=== PATIENT | male | born 1960 | race Caucasian/White ===

== ENCOUNTER → 2021-03-26 07:37 | Outpatient (CLI) | payer MEDICAID, SELFPAY ==
--- NOTE | 2021-03-26 07:39 | CA_ITS ---
APPROVED REPORT Tennis Desk Team Member: GUSTABO Laterality: Bilateral Indications: bilateral carotid bruits Risk Factors Hypertension: Hyperlipidemia Diabetes Smoking Doppler Spectral Velocity Analysis ECA (R) 134.70/27.80 cm/s ECA (L) 92.50/19.70 cm/s dICA (R) 73.70/36.80 cm/s dICA (L) 104.50/42.80 cm/s Violette (R) 83.10/33.40 cm/s Violette (L) 78.00/32.60 cm/s pICA (R) 95.20/28.90 cm/s pICA (L) 71.10/24.80 cm/s dCCA (R) 82.30/24.80 cm/s dCCA (L) 107.10/35.10 cm/s pCCA (R) 105.40/29.10 cm/s pCCA (L) 106.20/31.70 cm/s Vert (R) 53.10/23.10 cm/s Vert (L) 50.90/15.70 cm/s ICA/CCA 1.16 ICA/CCA 0.98 Findings Duplex evaluation demonstrates stenosis of the right proximal internal carotid artery <20%. Duplex evaluation demonstrates stenosis of the left proximal internal carotid artery <20%. Conclusion Duplex evaluation demonstrates stenosis of the right proximal internal carotid artery <20%. Duplex evaluation demonstrates stenosis of the left proximal internal carotid artery <20%. Electronically signed by : Cameron Harris MD 03/26/2021 16:37:29
== END ==
PROVIDERS: PCP Physician Assistant Medical; Visit Provider Physician Assistant
DX: R09.89 Other specified symptoms and signs involving the circulatory and respiratory systems (principal)
CPT/HCPCS: 93880

== ENCOUNTER → 2021-09-23 06:42 | Outpatient (CLI) | payer MEDICAID, SELFPAY ==
--- NOTE | 2021-09-23 06:43 | CA_ITS ---
APPROVED REPORT Exam: Exercise Treadmill Technologist: Nati Perera, Ht: 5 ft 6 in Wt: 173 lbs BSA: 1.88 m2 HR: 61 bpm BP: 128/81 mmHg Rhythm: NSR, T wave abn inferiorly and laterally Indications: CAD Medical History Medical History: HTN, Hyperlipidemia, Diabetic ??? Noninsulin Medications: Aspirin,,,,, Metformin,,,,, Losartan,,,,, Hydrochlorothiazide,,,,, Vit D3,,,,, Vit B,,,,, CloPIdogrel,,,,, Nitroglycerin,,,,, AtorvaASTATIN,,,,, PantoprazLE,,,,, Cardiac Risk Factors: HTN, Hyperlipidemia, Diabetes (non-insulin), Smoking Stress Test Details Test: Susie HR Resting HR: 67 bpm Max Heart Rate (APMHR): 162.920852 bpm Max HR Achieved: 149 bpm Target HR (85% APMHR): 137.380656 bpm % of APMHR: 91.98 Recovery HR: 132 bpm BP Resting BP: 133/78 mmHg Max BP: 186/82 mmHg Recovery BP: 182.0/80.0 mmHg ECG Resting ECG: NSR, T wave abn inferiorly and laterally Clinical Exercise duration: 09:30 min Highest Stage Achieved: Exercise capacity: 10.1 METs Stress ECG Conclusion During susie protocol pt walked a total of 9:30. No CP noted. No arrhythmias noted. Allowing for motion artifact the ST response to exercise appears within normal. Normal GXT, myoview images reported separately. Test Summary REST . . . . . . . Sitting REST . . . . . . . Standing REST 04:37 0.0 0.0 67 . 133/ 78 . . Stage 1 01:00 10.0 1.7 86 . . . . Stage 1 02:00 10.0 1.7 91 . . . . Stage 1 03:00 10.0 1.7 90 . 172/ 80 . . Stage 2 01:00 12.0 2.5 101 . . . . Stage 2 02:00 12.0 2.5 106 . . . . Stage 2 03:00 12.0 2.5 115 . 186/ 82 . . Stage 3 01:00 14.0 3.4 124 . . . . Stage 3 . . . . . . . Cardiolite injected Stage 3 02:00 14.0 3.4 131 . . . . Stage 3 03:00 14.0 3.4 139 . . . . Stage 4 00:30 16.0 4.2 147 . . . Stop exercise at 09:30 RECOVERY 01:00 0.0 0.0 132 . 182/ 80 . . RECOVERY 02:00 0.0 0.0 111 . 182/ 80 . . RECOVERY 03:00 0.0 0.0 95 . 162/ 84 . . RECOVERY 04:00 0.0 0.0 87 . 161/ 92 . . RECOVERY 05:00 0.0 0.0 81 . 136/ 92 . . RECOVERY 05:19 0.0 0.0 86 . 136/ 92 . . Electronically signed by : Riley Garcias MD 09/24/2021 08:45:46
--- NOTE | 2021-09-23 06:43 | NM_ITS ---
APPROVED REPORT Exam: Nuclear Stress Test Indication: cad..hypertension Patient Location: Outpatient Stress Tech: Nati Perera MS Tech:Azra Sheriff MARGIERick RT(R)(N) Ht: 5 ft 6 in Wt: 173 lbs HR: 67 bpm BP: 133/78 mmHg BSA: 1.88 m2 BMI: 27.9 History: cad..hypertension Procedure: Patient exercised on Kristian protocol 9:30 minutes and sec, resting heart rate 67 bpm, resting blood pressure 133/78 mmHg, with exercise maximum heart rate achived was 149 bpm which is 92 % of the maximum predicted heart rate and blood pressure was 186/82 mmHg. Patient denied any complaint of chest pain. Patient has good exercise capacity, achieved 10.0 METs of workload on treadmill, the blood pressure response to exercise was Adequate. Electrocardiogram Resting electrocardiogram shows sinus rhythm, with exercise there is less than 1.[address] segment depression noted from the baseline EKG. The EKG portion of the exercise Myoview is negative for ischemia. Cardiac Stress and Resting SPECT Images: Cardiac Stress and Resting SPECT images were obtained using technetium 99m Myoview 31.7 mCi stress and 10.70 mCi at rest. Gated SPECT for analysis of segmental wall motion and calculation of the ejection fraction also done. Cardiac stress and resting SPECT images show uniform myocardial activity without segmental perfusion abnormality, computer derived ejection fraction is 49% with no regional wall motion abnormality, right ventricle is normal size and contractility. Conclusion: 1. The EKG portion of the exercise Myoview is negative for ischemia, patient has good exercise capacity achieved 10 mets of workload on treadmill, the blood pressure response to exercise was adequate, there was no exercise-induced chest discomfort. 2. No scintigraphic evidence of reversible ischemia seen, computer derived ejection fraction is 49% with no regional wall motion abnormality, right ventricle is normal size and contractility. 3. Normal exercise Myoview study. Electronically signed by : Riley Garcias MD 09/24/2021 08:48:54
== END ==
PROVIDERS: PCP Physician Assistant Medical; Visit Provider Physician Assistant
DX: I25.10 Atherosclerotic heart disease of native coronary artery without angina pectoris (principal); I11.9 Hypertensive heart disease without heart failure; R09.89 Other specified symptoms and signs involving the circulatory and respiratory systems; E11.9 Type 2 diabetes mellitus without complications; E78.2 Mixed hyperlipidemia; Z79.84 Long term (current) use of oral hypoglycemic drugs
CPT/HCPCS: 78452; 93017; A9502

== ENCOUNTER → 2022-04-26 07:52 | Outpatient (CLI) | payer MEDICAID, SELFPAY ==
--- NOTE | 2022-04-26 07:57 | CT_ITS ---
FINAL REPORT CLINICAL HISTORY: lung cancer screening chronic cough, smoker, 1ppd x 20 years. no family hx of lung cancer. FINDINGS: Low-Dose Chest CT Axial images were obtained from the lung apex to the mid abdomen by computed tomography. Low-dose protocol was utilized. CTDI vol (mGy): 2.90 DLP (mGy-cm): 99.25 There is no axillary adenopathy. There is no hilar adenopathy. There are several mildly enlarged mediastinal lymph nodes. There is a lower right paratracheal lymph node measuring 14 mm. The heart is proper size. There is severe coronary artery calcification versus coronary artery stents. There is no pericardial or pleural effusion. Limited images of the upper abdomen demonstrate a 41 mm low-attenuation mass in the right kidney that cannot be accurately characterized without contrast. Lung window images demonstrate numerous small cystic areas, predominantly involving the upper lobes, with micro nodular opacities measuring up to 5 mm. There is a calcified granuloma in the right upper lobe. No dominant pulmonary nodule is identified. IMPRESSION: Lung RADS category 2S. Recommend 12 month follow-up low-dose chest CT. Modifier S: 1. Diffuse upper lobe predominant pulmonary micro nodular opacities and cystic areas. Differential diagnosis would include Langerhans cell histiocytosis or sarcoidosis, mycobacterial fungal diseases is also possible but felt less likely. 2. Widespread coronary artery calcification versus coronary artery stents. Mass in right kidney cannot be accurately characterized without contrast. If indicated, a renal mass protocol CT could further evaluate. Reviewed, Interpreted and Dictated by Jose Flores III, MD Transcribed by Suki Venegas Authenticated and [facility]
== END ==
PROVIDERS: PCP Physician Assistant Medical; Visit Provider Internal Medicine Pulmonary Disease
DX: R06.09 Other forms of dyspnea (principal); Z87.891 Personal history of nicotine dependence; Z12.2 Encounter for screening for malignant neoplasm of respiratory organs
CPT/HCPCS: 71271; 94060; 94618; 94726; 94729

== ENCOUNTER → 2022-05-06 10:19 | Outpatient (CLI) | payer MEDICAID, SELFPAY ==
[2022-05-06 12:53] LABS: Alanine Aminotransferase 23 U/L (12-78); Albumin Level 3.8 g/dl (3.5-5.0); Albumin/Globulin Ratio 1.4 (1.1-1.8); Alkaline Phosphatase 85 U/L (38-126); Anion Gap 13.5 mEq/L (5-15); Aspartate Amino Transferase 27 U/L (17-59); Bilirubin,Total 0.2 mg/dl (0.2-1.3); Blood Urea Nitrogen 11 mg/dl (9-20); Calcium 9.2 mg/dl (8.4-10.2); Carbon Dioxide 28 mmol/L (22.0-30.0); Chloride 102 mmol/L (98-107); Estimated Glomerular Filt Rate 76 ml/min (>60); GFR (African American) 93 ML/MIN (>60); Globulin 2.7 g/dL (1.3-3.2); Glucose 188 mg/dl (74-100); Potassium 3.5 mmoL/L (3.5-5.1); Sodium 140 mmol/L (136-145); Total Protein,Serum 6.5 g/dl (6.3-8.2)
[2022-05-06 12:58] LABS: C-Reactive Protein 21.3 mg/L (0-4)
[2022-05-09 15:09] LABS: Angiotensin Converting Enzyme 22 U/L (14-82)
[2022-05-10 17:25] LABS: QuantiFERON-TB Gold Plus Negative (Negative)
[2022-05-10 20:31] LABS: Fungitell(Beta D-Glucan) Serum <31 pg/mL (<80)
[2022-05-10 23:38] LABS: Aspergillus flavus Negative (Neg:<1:1); Aspergillus fumigatus Negative (Neg:<1:1); Aspergillus niger Negative (Neg:<1:1); Blastomyces Antibody Negative (Neg:<1:1)
== END ==
PROVIDERS: Visit Provider Internal Medicine Pulmonary Disease
DX: R06.09 Other forms of dyspnea (principal); J84.9 Interstitial pulmonary disease, unspecified; J84.10 Pulmonary fibrosis, unspecified; Z11.1 Encounter for screening for respiratory tuberculosis
CPT/HCPCS: 36415; 80053; 82164; 86140; 86480; 86606; 86612; 87070; 87116; 87186; 87205; 87206; 87449

== ENCOUNTER → 2022-05-13 13:17 | Outpatient (CLI) | payer MEDICAID, SELFPAY | PROVIDERS: Visit Provider Internal Medicine Pulmonary Disease | DX: Z01.812 Encounter for preprocedural laboratory examination (principal); Z20.822 Contact with and (suspected) exposure to COVID-19; J18.9 Pneumonia, unspecified organism | CPT/HCPCS: C9803; U0003; U0005 ==

== ENCOUNTER 2022-05-16 07:28 | Day surgery (SDC) | payer MEDICAID, SELFPAY ==
[2022-05-16] VITALS (12 sets, daily range): BP systolic 94–141; BP diastolic 66–86; PULSE 65–85; RESP 15–22; TEMP 36.2–36.3; O2SAT 90–95; BMI 27.4
[2022-05-16 07:58] LABS: POC Glucose,Bedside 155 (70-110)
--- NOTE | 2022-05-16 10:00 | EXP.ANES.CKL ---
[facility] Medical History (Updated 05/16/22 @ 07:53 by Tiffanie Ann RN) Abnormal screening CT of chest Allergies Atypical pneumonia Bilateral carotid bruits Chronic cough COPD (chronic obstructive pulmonary disease) Cystic-bullous disease of lung Diabetes mellitus, type 2 Dyspnea on exertion Fatigue History of gastroesophageal reflux (GERD) History of heart attack Hypertension ILD (interstitial lung disease) Osteoarthritis Restrictive lung disease Screening for lung cancer Shortness of breath Smoking greater than 30 pack years Tobacco abuse counseling Tobacco abuse disorder Surgical History (Updated 05/16/22 @ 07:53 by Tiffanie Ann RN) History of cardiac cath History of colonoscopy Hx of heart artery stent Family History (Updated 05/06/22 @ 08:53 by Annette Johnson RT) Other Heart attack Social History (Updated 05/16/22 @ 07:55 by Tiffanie Ann RN) Smoking Status: Current every day smoker tobacco type: cigarettes alcohol intake: never substance use type: denies use current occupational status: employed Travel in the last 8 weeks: None household members: spouse marital status: [facility] Anesthesia Checklist Patient Identification Patient Identification: Arm Band Structural Data Admitted From: Home Planned Operative Procedure/s: Bronchoscopy with Transbronchial Biopsy Consent for Planned Operative Procedure(s) Verified: Yes Verified Documents: Surgical Consent and History and Physical NPO Status Verified Time NPO: 00:00 Additional verifications Anesthesia Reactions: No Hx Blood Transfusions: No Blood Transfusion Reaction: No Airway Assessment C-Spine Mobility Assessed: Yes TMJ Mobility Assessed: Yes Dentition: Poor Dentition Neurological Assessment Level of Consciousness: Awake and Alert Anesthesia Plan Anesthesia Risk discussed: Yes Anesthesia Plan: Verified ASA Class: III Anesthesia Type: General
--- NOTE | 2022-05-16 10:19 | FL_ITS ---
FINAL REPORT TECHNIQUE: Fluoroscopy was provided for bronchoscopy. CLINICAL HISTORY: fluoro case OR -- bronch 3.17 time FINDINGS: Fluoroscopy Time: 3.17 Images Submitted: 1 IMPRESSION: 3.17 minutes of fluoroscopy provided for bronchoscopy. Reviewed, Interpreted and Dictated by Mani Chadwick MD Transcribed by Cherelle Leung Authenticated and [facility]
--- NOTE | 2022-05-16 10:19 | P.PNANES_ITS ---
[facility] Anesthesia Record Part I Anesthesia Record I Intake, IV Amount: 1,000 Estimated blood loss (mL): 0 Urine output (mL): 0 Blood Pressure: 141/86 SaO2: 91 Pulse Rate: 80 Respiratory Rate: 16 Temperature: 97.1 F Patient is:: Drowsy and Stable Stable to PACU at:: 10:15
--- NOTE | 2022-05-16 10:25 | XR_ITS ---
FINAL REPORT CLINICAL HISTORY: post op bronch..cough FINDINGS: The heart size is normal. The mediastinum is normal. There is extensive coarse interstitial opacity in both lungs probably due to fibrosis. There is more localized opacity in the right lower lobe that may be due to acute infiltrate or sequela of bronchoscopy. There is no pneumothorax. There is no osseous abnormality. IMPRESSION: Right lower lobe opacity may be due to acute infiltrate or sequela bronchoscopy. No pneumothorax. Reviewed, Interpreted and Dictated by Mani Chadwick MD Transcribed by Jayson Renteria Authenticated and [facility]
--- NOTE | 2022-05-16 10:37 | EXP.BRONCH.N ---
Procedure: Date: 05/16/22 Patient Date of :: 1960 Procedure Performed:: Bronchoscopy with airway examination, alveolar lavage and transbronchial biopsy Indications:: Atypical pneumonia, cystic lung disease Performing Provider:: Augustus Soler MD Referring Provider:: Dr:Emmanuelle Lee Sedation:: General anesthesia Procedure:: Bronchoscopy airway examination, bronchoalveolar lavage and transbronchial lung biopsy: A clean DIAGNOSTIC bronchoscopy was advanced through the ET tube and airways were examined up to subsegmental bronchi. Airways appeared grossly normal, clear with no evidence of mucoid secretions, mucous plugging active bleeding/old blood clots noted. Bronchoalveolar lavage was performed in the RIGHT MIDDLE LOBE with instillation of 60 cc normal saline with return of 25 cc of clear fluid back. BAL fluid was sent for cell count and differential along with bacterial fungal and AFB stain and cultures. Transbronchial biopsy was performed in the RIGHT MIDDLE LOBE with a total of 7 biopsies performed, 5 biopsy specimens were sent in formalin for cytopathologic examination. The other 2 biopsy samples, were sent one each in two separate normal saline specimen cups for bacterial fungal and AFB stain cultures. Special request was also made for the pathologist to evaluate for AFB and fungal organisms on the cytopathologic examination. Patient tolerated the procedure with no acute complications. We will follow the patient in pulmonary clinic in 7 to 10 days. Findings:: Please see the procedure note Recommendations:: Follow in pulmonary clinic in 7 to 10 days Complications:: No immediate complications Estimated blood obtained (mL): 5
--- NOTE | 2022-05-16 10:49 | SUR.OPER ---
1015- chest xray wanted per dr. godinez, Pacu nurse luisa,rn notified of this in pacu.
--- NOTE | 2022-05-16 15:16 | EXP.ANES.II ---
[facility] Anesthesia Record Part II Anesthesia Record Part II Discharge Time: 10:45 Destination: Surgical Day Care (OP Surgery) PACU nurse assessment reviewed?: Yes Patient Condition:: Good Anesthesia Complications:: None Swallowing reflex intact?: Yes Cyanosis?: No Blood Pressure: 111/66 Pulse Rate: 76 Temperature: 97.3 F Mental Status: Alert & Oriented Pain level:: 0 Nausea and/or vomitting:: None Intake, IV Amount: 0
== END 2022-05-16 11:55 | disposition home or self-care (01) ==
PROVIDERS: PCP Physician Assistant Medical; Visit Provider Internal Medicine Pulmonary Disease
PROC: (CPT 31624; principal; 2022-05-16 09:00)
DX: J84.9 Interstitial pulmonary disease, unspecified (principal); F17.210 Nicotine dependence, cigarettes, uncomplicated; E11.9 Type 2 diabetes mellitus without complications; Z79.84 Long term (current) use of oral hypoglycemic drugs; Z79.899 Other long term (current) drug therapy; C96.6 Unifocal Langerhans-cell histiocytosis; J98.4 Other disorders of lung
CPT/HCPCS: 31624; 31628; 71045; 76000; 82962; 87070; 87102; 87116; 87186; 87205; 87206; 89051; J2405

== ENCOUNTER → 2022-06-01 08:58 | Outpatient (CLI) | payer MEDICAID, SELFPAY ==
--- NOTE | 2022-06-01 08:58 | NM_ITS ---
FINAL REPORT CLINICAL HISTORY: Lytic lesions eveluaiton COUGH, UNIFOCAL LANGERHANS-CELL HISTOCYTOSIS FINDINGS: EXISTING RELEVANT IMAGING STUDIES: Chest CT dated April 26, 2022 TECHNIQUE: The patient was injected with 25.7 mCi of technetium 99-MDP. 3 hour delayed images were obtained. FINDINGS: There is mild increased activity in the shoulders, knees, ankles, and feet in a symmetric pattern likely representing degenerative change. No other abnormal tracer activity is identified to suggest occult fracture or metastatic disease. IMPRESSION: No findings to indicate metastatic bone disease. Reviewed, Interpreted and Dictated by Jose Flores III, MD Transcribed by Jayson Renteria Authenticated and [facility] [place] [place]
== END ==
PROVIDERS: PCP Physician Assistant Medical; Visit Provider Internal Medicine Pulmonary Disease
DX: C96.6 Unifocal Langerhans-cell histiocytosis (principal)
CPT/HCPCS: 78306; A9503

== ENCOUNTER → 2022-06-22 09:21 | Outpatient (CLI) | payer MEDICAID, SELFPAY ==
[2022-06-22 10:37] LABS: Alanine Aminotransferase 37 U/L (12-78); Albumin Level 3.8 g/dl (3.5-5.0); Alkaline Phosphatase 124 U/L (38-126); Aspartate Amino Transferase 35 U/L (17-59); Bilirubin,Unconjugated 0.1 mg/dL (0.0-1.1); Chol/HDL Ratio 3.2 (1-3.5); Cholesterol 130 mg/dl (140-200); HDL Cholesterol 41 mg/dl (40-60); Total Protein,Serum 6.3 g/dl (6.3-8.2); Triglycerides 278 mg/dl (30-150); VLDL Cholesterol 56 mg/dL (0-40)
[2022-06-22 10:39] LABS: Bilirubin,Indirect 0.1 mg/dL (0.0-0.9); Bilirubin,Total 0.1 mg/dl (0.2-1.3)
[2022-06-22 10:53] LABS: Direct LDL Cholesterol 63.05 mg/dL (100-129)
== END ==
PROVIDERS: PCP Physician Assistant Medical; Visit Provider Nurse Practitioner
DX: I25.10 Atherosclerotic heart disease of native coronary artery without angina pectoris (principal); I11.9 Hypertensive heart disease without heart failure; E78.2 Mixed hyperlipidemia
CPT/HCPCS: 36415; 80061; 80076

== ENCOUNTER → 2022-08-18 12:12 | Outpatient (CLI) | payer MEDICAID, SELFPAY ==
[2022-08-18 13:38] VITALS: PULSE 79
== END ==
PROVIDERS: PCP Physician Assistant Medical; Visit Provider Internal Medicine Pulmonary Disease
DX: R06.09 Other forms of dyspnea (principal)
CPT/HCPCS: 94060; 94618; 94640; 94727; 94729

== ENCOUNTER → 2023-05-09 13:08 | Outpatient (CLI) | payer MEDICAID, SELFPAY ==
--- NOTE | 2023-05-09 13:08 | CT_ITS ---
FINAL REPORT CLINICAL HISTORY: lung cancer screening former smoker, quit 1 yr ago, smoked 1 pk per day x 20 yrs copd, cad COMPARISON: 04/26/2022 FINDINGS: CT CHEST LOW DOSE SCREENING HISTORY: Screening exam for lung cancer. Former smoker, 20 pack year smoking history DOSE: CTDIvol: 2.9 mGy, DLP: 9.51 mGy*cm COMPARISON: 04/26/2022. TECHNIQUE: Axial CT without IV contrast administration using low dose protocol FINDINGS: Borderline mediastinal nodes are once again seen, stable since the prior examination. There are moderate changes of emphysema present. Severe coronary artery calcifications versus coronary stents are present as well. There is improvement of the widespread pulmonary micronodular opacities since the prior CT of March 2022. However many still persist. There are no new masses or nodules. The differential diagnosis for these lesions is unchanged since the prior CT, and includes Langerhans cell histiocytosis or sarcoidosis, mycobacterial or fungal diseases. No pleural or pericardial effusion is seen . The gallbladder is collapsed. There is a 4.2 cm right renal mass once again identified, stable since the prior CT examination. IMPRESSION: Widespread pulmonary micronodular opacities, which have improved since the prior CT of March 2022, although many persist. Borderline size mediastinal nodes also persist. Severe coronary artery calcifications versus stents remain present. 4.2 cm right renal mass is also stable. If clinically indicated would recommend follow-up with CT renal protocol or MRI for further evaluation. LUNG RADS CATEGORY 2S RECOMMENDATION: 12 month LDCT follow up Reviewed, Interpreted and Dictated by Jose Flores III, MD Transcribed by Roxie Downs Authenticated and [facility]
== END ==
PROVIDERS: PCP Physician Assistant Medical; Visit Provider Internal Medicine Pulmonary Disease
DX: Z87.891 Personal history of nicotine dependence (principal); Z12.2 Encounter for screening for malignant neoplasm of respiratory organs
CPT/HCPCS: 71271

== ENCOUNTER → 2023-07-19 10:29 | Outpatient (CLI) | payer MEDICAID, SELFPAY ==
[2023-07-19 11:23] LABS: Basophils # 0.1 K/mm3 (0-0.2); Basophils % 0.7 % (0.1-2.0); Eosinophils # 0.2 K/mm3 (0.0-0.4); Hematocrit 41.4 % (42.0-52.0); Lymphocytes # 2.2 K/mm3 (0.7-4.5); Mean Corpuscular HGB Conc 33.9 g/dL (31.8-35.4); Mean Corpuscular Volume 91.5 fl (80-94); Monocytes # 0.6 K/mm3 (0.1-1.0); Monocytes % 5.2 % (1.7-9.3); Neutrophils # 7.5 K/mm3 (1.8-7.8); Platelet Count 336 K/mm3 (142-424); Red Blood Count 4.53 M/mm3 (4.60-6.20); Red Cell Distribution Width 13.7 % (11.5-17.5); White Blood Count 10.6 K/mm3 (4.8-10.8)
[2023-07-19 12:22] LABS: Alanine Aminotransferase 23 U/L (12-78); Albumin Level 4.1 g/dl (3.5-5.0); Alkaline Phosphatase 95 U/L (38-126); Anion Gap 11.7 mEq/L (5-15); Aspartate Amino Transferase 30 U/L (17-59); Bilirubin,Direct 0.2 mg/dl (0.0-0.4); Bilirubin,Indirect 0.2 mg/dL (0.0-0.9); Bilirubin,Total 0.4 mg/dl (0.2-1.3); Bilirubin,Unconjugated 0.3 mg/dL (0.0-1.1); Blood Urea Nitrogen 13 mg/dl (9-20); Calcium 8.5 mg/dl (8.4-10.2); Carbon Dioxide 36 mmol/L (22.0-30.0); Chloride 93 mmol/L (98-107); Chol/HDL Ratio 3.2 (1-3.5); Cholesterol 116 mg/dl (140-200); Estimated Glomerular Filt Rate 76 ml/min (>60); GFR (African American) 92 ML/MIN (>60); Glucose 128 mg/dl (74-100); HDL Cholesterol 36 mg/dl (40-60); Sodium 138 mmol/L (136-145); Triglycerides 193 mg/dl (30-150); VLDL Cholesterol 39 mg/dL (0-40)
[2023-07-19 12:39] LABS: Free T4 (Free Thyroxine) 1.04 ng/dl (0.78-2.19)
[2023-07-19 12:52] LABS: Thyroid Stimulating Hormone 1.38 uIU/mL (0.465-4.68)
[2023-07-19 13:03] LABS: Potassium 2.7 mmoL/L (3.5-5.1)
== END ==
PROVIDERS: Visit Provider Nurse Practitioner
DX: E78.5 Hyperlipidemia, unspecified (principal); I11.9 Hypertensive heart disease without heart failure; I25.10 Atherosclerotic heart disease of native coronary artery without angina pectoris; R06.00 Dyspnea, unspecified; Z86.73 Personal history of transient ischemic attack (TIA), and cerebral infarction without residual deficits; E11.9 Type 2 diabetes mellitus without complications; Z79.84 Long term (current) use of oral hypoglycemic drugs; Z72.0 Tobacco use
CPT/HCPCS: 36415; 80048; 80061; 80076; 84439; 84443; 85025

== ENCOUNTER 2023-09-21 09:12 | Outpatient (CLI) | payer MEDICAID, SELFPAY ==
[2023-09-21 09:42] LABS: Basophils # 0.2 K/mm3 (0-0.2); Basophils % 1.4 % (0.1-2.0); Eosinophils # 0.3 K/mm3 (0.0-0.4); Eosinophils % 2.9 % (0.1-12.0); Hematocrit 44.3 % (42.0-52.0); Hemoglobin 15.2 g/dL (14.1-18.0); Lymphocytes # 2.6 K/mm3 (0.7-4.5); Lymphocytes % 24.1 % (10-50); Mean Corpuscular HGB Conc 34.2 g/dL (31.8-35.4); Mean Corpuscular Hemoglobin 30.6 pg (27.0-31.2); Mean Corpuscular Volume 89.5 fl (80-94); Mean Platelet Volume 8.3 fl (7.4-10.4); Monocytes # 0.8 K/mm3 (0.1-1.0); Monocytes % 7.3 % (1.7-9.3); Neutrophils % 64.4 % (37.0-80.0); Platelet Count 301 K/mm3 (142-424); Red Blood Count 4.95 M/mm3 (4.60-6.20); Red Cell Distribution Width 14.3 % (11.5-17.5); White Blood Count 10.8 K/mm3 (4.8-10.8)
[2023-09-21 10:03] LABS: Chloride 100 mmol/L (98-107); Potassium 4.7 mmoL/L (3.5-5.1); Sodium 137 mmol/L (136-145)
[2023-09-21 10:05] LABS: Alanine Aminotransferase 32 U/L (12-78); Anion Gap 15.7 mEq/L (5-15); Aspartate Amino Transferase 30 U/L (17-59); Blood Urea Nitrogen 24 mg/dl (9-20); Carbon Dioxide 26 mmol/L (22.0-30.0); Estimated Glomerular Filt Rate 62 ml/min (>60); GFR (African American) 75 ML/MIN (>60); Magnesium 1.5 mg/dl (1.6-2.3)
[2023-09-21 10:06] LABS: Albumin Level 4.5 g/dl (3.5-5.0); Alkaline Phosphatase 91 U/L (38-126); Bilirubin,Direct 0.5 mg/dl (0.0-0.4); Bilirubin,Total 0.5 mg/dl (0.2-1.3); Calcium 10.2 mg/dl (8.4-10.2); Chol/HDL Ratio 2.8 (1-3.5); Cholesterol 108 mg/dl (140-200); Glucose 253 mg/dl (74-100); HDL Cholesterol 38 mg/dl (40-60); Total Protein,Serum 7.4 g/dl (6.3-8.2); Triglycerides 226 mg/dl (30-150); VLDL Cholesterol 45 mg/dL (0-40)
[2023-09-21 10:45] LABS: Direct LDL Cholesterol 51.54 mg/dL (100-129)
[2023-09-21 10:46] LABS: Thyroid Stimulating Hormone 1.37 uIU/mL (0.465-4.68)
== END 2023-09-21 23:59 ==
PROVIDERS: Physician Assistant; PCP Physician Assistant Medical; Visit Provider Nurse Practitioner
DX: I11.9 Hypertensive heart disease without heart failure (principal); I25.10 Atherosclerotic heart disease of native coronary artery without angina pectoris; R06.09 Other forms of dyspnea; R55 Syncope and collapse; E78.5 Hyperlipidemia, unspecified; E11.9 Type 2 diabetes mellitus without complications; E83.42 Hypomagnesemia; E87.6 Hypokalemia; G47.33 Obstructive sleep apnea (adult) (pediatric); R42 Dizziness and giddiness; Z79.84 Long term (current) use of oral hypoglycemic drugs; Z87.891 Personal history of nicotine dependence
CPT/HCPCS: 36415; 80048; 80061; 80076; 83735; 84439; 84443; 85025; 93270

== ENCOUNTER 2023-10-18 08:37 | Outpatient (CLI) | payer MEDICAID, SELFPAY ==
--- NOTE | 2023-10-18 08:37 | CA_ITS ---
APPROVED REPORT EXAM: Comprehensive 2D, Doppler, and color-flow Echocardiogram Chlorinator: Evelin Tavera RT(R) Ht: 5 ft 6 in Wt: 170lbs BSA: 1.87 BP: 132/84 mmHg Indications: dyspnea, dizziness, HTN, DM, SOB, JONES, hyperlipidemia, stents. 2D Dimensions Left Atrium 3.09 cm M: 3.0 - 4.0 LVEF (Evans's) 47.10 % M: 52 - 72 LVOT 1.98 cm (M/F) 1.5-2.5 LV Volume 93.80 mL M: 62 - 150 LV Volume Index 50.2 mL/m2 M: 34 - 74 LA Volume 23.40 mL LA Volume Index 12.51 mL/m2 (M/F) 16-34 EF AP4 43.20 % EF AP2 49.3 % EF BP 47.1 % GL Strain -15.8 % M-Mode Dimensions RVDd 2.33 cm (0.9-2.6) LVDd 4.61 cm (3.5-5.7) Ao Diam 3.16 cm (2.0-3.7) LVDs 3.83 cm (3.5-5.7) IVSd 0.87 cm (0.6-1.1) PWd 0.97 cm (0.6-1.1) EF (Teich) 35.50% FS 16.90% EDV (Teich) 97.80 mL ESV (Teich) 63.10 mL LV Diastology E Decel Time 242 (160-240 msec) E/A Ratio 0.8 MED E' 6.2 (>= 7 cm/sec) E'/MED E' Ratio 9.53 (<= 14) LAT E' 12.6 (>= 10 cm/sec) E/LAT E' Ratio 4.69 (<= 14) Mitral Valve MV E Max Kit. 59.0 (40-130 cm/s) MV A Velocity 74.0 (40-130 cm/s) E/A Ratio 0.80 MV Decel. Time 242 (160-240 ms) Left Ventricle The left ventricle is normal size. The left ventricular systolic function is normal. The left ventricular ejection fraction is within the normal range. There is normal left ventricular wall thickness. There is normal LV segmental wall motion. The left ventricular diastolic function is normal. LVEF is 60%. Right Ventricle The right ventricle is normal size. The right ventricular systolic function is normal. Atria The left atrium size is normal. The right atrium size is normal. There is no Doppler evidence of interatrial shunt. Aortic Valve The aortic valve is mildly thickened. There is no aortic valvular stenosis. Trace aortic regurgitation. Mitral Valve The mitral valve is normal in structure. No evidence of mitral valve stenosis. Trace mitral regurgitation. Tricuspid Valve The tricuspid valve leaflets are thin and pliable. Trace tricuspid regurgitation. There is insufficient TR jet to estimate RVSP. Pulmonic Valve The pulmonary valve is normal in structure. Mild pulmonic regurgitation. Great Vessels The aortic root is normal in size. The ascending aorta is normal in size. IVC is normal in size and collapses >50% with inspiration. Pericardium There is no pericardial effusion. Other Information Study Quality: Fair Conclusion Normal biventricular systolic function. Mild PI. Electronically signed by : Sindi Mortensen MD 10/20/2023 19:26:31
--- NOTE | 2023-10-18 08:37 | CA_ITS ---
FINAL REPORT TECHNIQUE: Color Doppler, duplex Doppler and desouza scale sonography of the bilateral neck vasculature was performed. Velocities were measured in the carotid arteries. Stenosis evaluation based on velocity criteria. CLINICAL HISTORY: DIZZINESS,HTN,HLD,SMOKER,DM COMPARISON: None FINDINGS: The peak systolic velocity of the right common carotid artery is 89 cm/sec and internal carotid artery 60 to cm/sec. The diastolic velocity in the internal carotid artery is 30 cm/sec. The ICA/CCA ratio is 0.87. Visually, a small amount of plaque is seen. These findings are consistent with less than 50% stenosis. The external carotid artery is patent. The right vertebral artery is patent with antegrade flow. The peak systolic velocity of the left common carotid artery is 80 cm/sec and internal carotid artery 80 cm/sec. The diastolic velocity in the internal carotid artery is 30 cm/sec. The ICA/CCA ratio is 1.. Visually, a small amount of plaque is seen. These findings are consistent with less than 50% stenosis. The external carotid artery is patent. The left vertebral artery is patent with antegrade flow. IMPRESSION: No evidence of significant carotid stenosis. Bilateral patent vertebral arteries. If indicated, CTA or MRA could further evaluate. Reviewed, Interpreted and Dictated by Mani Chadwick MD Transcribed by Roxie Downs Authenticated and . [facility]
== END 2023-10-18 23:59 ==
LOC: RT 08:37
PROVIDERS: PCP Physician Assistant Medical; Visit Provider Physician Assistant
DX: R06.00 Dyspnea, unspecified (principal); R42 Dizziness and giddiness; R55 Syncope and collapse; I25.10 Atherosclerotic heart disease of native coronary artery without angina pectoris; R94.31 Abnormal electrocardiogram [ECG] [EKG]; I11.9 Hypertensive heart disease without heart failure; E11.9 Type 2 diabetes mellitus without complications; E78.5 Hyperlipidemia, unspecified; G47.33 Obstructive sleep apnea (adult) (pediatric); G47.9 Sleep disorder, unspecified; Z79.84 Long term (current) use of oral hypoglycemic drugs
CPT/HCPCS: 93306; 93880

== ENCOUNTER 2023-10-30 11:07 | Outpatient (CLI) | payer MEDICAID, SELFPAY ==
--- NOTE | 2023-10-30 11:08 | NM_ITS ---
APPROVED REPORT Exam: Nuclear Stress Test Indication: soa Patient Location: Outpatient Stress Tech: Christine Wiggins CT Tech:Denisse Medeiros, MARGIET, RT (R)(N) Ht: 5 ft 6 in Wt: 170 lbs HR: 65 bpm BP: 122/78 mmHg BSA: 1.87 m2 Rhythm: NSR TID: 1.23 BMI: 27.4 History: soa Procedure: Patient received 0.4 mg of intravenous Lexiscan, resting heart rate 65 bpm, resting blood pressure 122/78 mmHg, with Lexiscan maximum heart rate achieved was 103 bpm which is 85 % of the maximum predicted heart rate and blood pressure was 153/86 mmHg. With Lexiscan, patient denied any complaint of chest pain. Cardiac Stress and Resting SPECT Images: Cardiac Stress and Resting SPECT images were obtained using technetium 99m Myoview 31.9 mCi stress and 10.82 mCi at rest. Resting and stress imaging in supine and prone positions demonstrate a medium sized, severe, fixed perfusion defect in the basal to mid inferior LV wall. There is increased transient ischemic dilatation ratio (TID 1.23), suggestive of possible multivessel disease or balanced ischemia. Gated imaging demonstrates mild reduction in global LV systolic function. There is severe hypokinesis of the basal inferior LV wall. LVEF is calculated at 47%. Conclusion: Medium sized, severe, fixed perfusion defect in the basal to mid inferior LV wall. No evidence of focal reversible ischemia. Increased transient ischemic dilatation ratio (TID 1.23), suggestive of possible multivessel disease or balanced ischemia. Gated imaging demonstrates mild reduction in global LV systolic function. There is severe hypokinesis of the basal inferior LV wall. LVEF is calculated at 47%. Electronically signed by : Sindi Mortensen MD 10/30/2023 16:45:32
[2023-10-30] MEDS: ISOTOPE MYOVIEW (PER STUDY) 1 DOSE IV (13:11)
[2023-10-30] MEDS: SODIUM CHLORIDE 0.9% 10ML SYR (RAD ONLY) 10 ML IV ×2 (13:11)
[2023-10-30] MEDS: REGADENOSON 0.4MG/5ML SYRINGE 0.400000000000000022 MG IV (13:11)
--- NOTE | 2023-10-30 14:46 | CA_ITS ---
APPROVED REPORT Exam: Pharmacologic Technologist: Christine Christensen, Ht: 5 ft 6 in Wt: 174 lbs BSA: 1.88 m2 HR: 69 bpm BP: 122/78 mmHg Medical History Medications: Aspirin,,,,, Metformin,,,,, Vitamin D3,,,,, Losartan,,,,, Pantoprazole,,,,, Atorvastatin,,,,, HCTZ,,,,, Albuterol,,,,, ADVAIR,,,,, CloPIdogrel,,,,, Famotidine,,,,, BisOPROLOL Fumarate,,,,, Stress Test Details Test: LEXISCAN Reason for pharmacologic stress test: physical limitation. HR Resting HR: 65 bpm Max Heart Rate (APMHR): 160 bpm Max HR Achieved: 103 bpm Target HR (85% APMHR): 136 bpm % of APMHR: 64 Recovery HR: 75 bpm BP Resting BP: 122.0/78.0 mmHg Max BP: 153.0/86.0 mmHg Recovery BP: 145.0/85.0 mmHg ECG Resting ECG: Normal sinus rhythm Stress ECG: No ST changes Clinical Exercise duration: 04:01 min Highest Stage Achieved: Exercise capacity: 1.0 METs Stress ECG Conclusion Symptoms: Chest Pressure, SOA Arrhythmias/Ectopy: None ST-T Changes: No significant ST changes Conclusion: Unremarkable Lexiscan portion of stress test. Myoview images reported separately. Test Summary REST . . . . . . . Resting REST 06:58 . . 65 . 122/ 78 . . Stage 1 01:00 . . 89 . . . . Stage 2 01:00 . . 99 . 128/ 84 . . Stage 3 01:00 . . 89 . 138/ 89 . . Stage 4 01:00 . . 82 . 153/ 86 . . Stage 4 01:01 . . 81 . 153/ 86 . Stop exercise at 04:01 RECOVERY 01:00 . . 82 . 140/ 84 . . RECOVERY 02:00 . . 77 . 143/ 86 . . RECOVERY 02:30 . . 76 . 145/ 85 . . Electronically signed by : Sindi Mortensen MD 10/30/2023 16:43:37
== END 2023-10-30 23:59 ==
LOC: RAD 11:08
PROVIDERS: PCP Physician Assistant Medical; Visit Provider Physician Assistant
DX: R94.31 Abnormal electrocardiogram [ECG] [EKG] (principal); R55 Syncope and collapse; I11.9 Hypertensive heart disease without heart failure; I25.10 Atherosclerotic heart disease of native coronary artery without angina pectoris; R06.00 Dyspnea, unspecified; E78.5 Hyperlipidemia, unspecified; E11.9 Type 2 diabetes mellitus without complications; Z79.84 Long term (current) use of oral hypoglycemic drugs; Z87.891 Personal history of nicotine dependence
CPT/HCPCS: 78452; 93017; 93018; A9502; J2785

== ENCOUNTER 2023-11-09 09:15 | Outpatient (CLI) | payer MEDICAID, SELFPAY ==
[2023-11-09 09:36] LABS: Basophils # 0.2 K/mm3 (0-0.2); Basophils % 1.4 % (0.1-2.0); Eosinophils # 0.5 K/mm3 (0.0-0.4); Eosinophils % 4.4 % (0.1-12.0); Hematocrit 44.2 % (42.0-52.0); Hemoglobin 14.6 g/dL (14.1-18.0); Lymphocytes # 2.4 K/mm3 (0.7-4.5); Lymphocytes % 21.4 % (10-50); Mean Corpuscular HGB Conc 33.1 g/dL (31.8-35.4); Mean Corpuscular Hemoglobin 31.8 pg (27.0-31.2); Mean Corpuscular Volume 95.9 fl (80-94); Mean Platelet Volume 8.5 fl (7.4-10.4); Monocytes # 0.7 K/mm3 (0.1-1.0); Monocytes % 6.2 % (1.7-9.3); Neutrophils # 7.5 K/mm3 (1.8-7.8); Neutrophils % 66.7 % (37.0-80.0); Platelet Count 272 K/mm3 (142-424); Red Blood Count 4.61 M/mm3 (4.60-6.20); Red Cell Distribution Width 14.4 % (11.5-17.5); White Blood Count 11.2 K/mm3 (4.8-10.8)
[2023-11-09 10:50] LABS: Alanine Aminotransferase 35 U/L (12-78); Albumin Level 4.6 g/dl (3.5-5.0); Alkaline Phosphatase 110 U/L (38-126); Anion Gap 19.3 mEq/L (5-15); Aspartate Amino Transferase 29 U/L (17-59); Bilirubin,Direct 0.2 mg/dl (0.0-0.4); Bilirubin,Indirect 0.4 mg/dL (0.0-0.9); Bilirubin,Total 0.6 mg/dl (0.2-1.3); Bilirubin,Unconjugated 0.4 mg/dL (0.0-1.1); Blood Urea Nitrogen 20 mg/dl (9-20); Calcium 10.2 mg/dl (8.4-10.2); Carbon Dioxide 25 mmol/L (22.0-30.0); Chloride 95 mmol/L (98-107); Chol/HDL Ratio 3.5 (1-3.5); Cholesterol 125 mg/dl (140-200); Estimated Glomerular Filt Rate 68 ml/min (>60); GFR (African American) 83 ML/MIN (>60); HDL Cholesterol 36 mg/dl (40-60); Magnesium 1.6 mg/dl (1.6-2.3); Potassium 4.3 mmoL/L (3.5-5.1); Sodium 135 mmol/L (136-145); Total Protein,Serum 7.3 g/dl (6.3-8.2); Triglycerides 347 mg/dl (30-150); VLDL Cholesterol 69 mg/dL (0-40)
[2023-11-09 11:02] LABS: Direct LDL Cholesterol 52.57 mg/dL (100-129)
[2023-11-09 11:08] LABS: Free T4 (Free Thyroxine) 0.84 ng/dl (0.78-2.19)
[2023-11-09 11:10] LABS: Glucose 468 mg/dl (74-100)
[2023-11-09 11:24] LABS: Thyroid Stimulating Hormone 3.24 uIU/mL (0.465-4.68)
== END 2023-11-09 23:59 ==
LOC: LAB 09:16
PROVIDERS: PCP Physician Assistant Medical; Visit Provider Physician Assistant
DX: R94.31 Abnormal electrocardiogram [ECG] [EKG] (principal); R94.39 Abnormal result of other cardiovascular function study; R42 Dizziness and giddiness; G47.33 Obstructive sleep apnea (adult) (pediatric); R06.09 Other forms of dyspnea; E78.2 Mixed hyperlipidemia; E11.9 Type 2 diabetes mellitus without complications; I25.118 Atherosclerotic heart disease of native coronary artery with other forms of angina pectoris; I11.9 Hypertensive heart disease without heart failure; E83.42 Hypomagnesemia; K21.9 Gastro-esophageal reflux disease without esophagitis; Z79.84 Long term (current) use of oral hypoglycemic drugs; Z87.891 Personal history of nicotine dependence
CPT/HCPCS: 36415; 80048; 80061; 80076; 83735; 84439; 84443; 85025

== ENCOUNTER 2023-11-13 09:30 | Day surgery (SDC) | payer MEDICAID, SELFPAY ==
[2023-11-13] VITALS (13 sets, daily range): BP systolic 90–173; BP diastolic 54–98; PULSE 55–80; RESP 18–20; TEMP 36.6; O2SAT 92–97; BMI 27.7
--- NOTE | 2023-11-13 07:07 | IR_ITS ---
APPROVED REPORT Patient Location: Outpatient Deck Specialist: VERONIKA Suazo RT (R) PROCEDURES Left heart catheterization Left ventriculogram Selective coronary angiogram INDICATION Known coronary artery disease, Atypical angina pectoris, Abnormal Myoview, Informed consent was obtained prior to the procedure. COMPLICATIONS NONE Estimated Blood Loss: LESS THAN 10 ML TECHNIQUE One percent lidocaine used to anesthetize the right anterior aspect of the wrist. The right radial artery was accessed via the Seldinger technique. A 6 Turkmen sheath was placed in the right radial artery. 2.5 mg of Verapamil, 800 mcg of nitroglycerin, 1mg Lidocaine and 5000 U Heparin were given through the arterial sheath. The papa catheter was also used to perform left heart catheterization, left ventriculogram and selective coronary angiogram. At the end of the procedure the sheath was removed good hemostasis was achieved using Traclet band, patient was transferred to the postop holding area in stable condition. ANGIOGRAPHIC RESULTS The left main artery Normal The left anterior descending artery Has proximal 10 to 20% stenoses followed by a stent in the mid segment which is widely patent with minimal in-stent restenosis and excellent proximal distal transitioning. The LAD is a large vessel which wraps the apex. The circumflex artery Is a nondominant vessel and has proximal 40% stenosis and then gives rise to a large first obtuse marginal artery which has proximal 30 and 40% stenoses. The second obtuse marginal artery is 1.75 mm in diameter and has a proximal eccentric 80 to 90% stenosis The right coronary artery Is a dominant vessel which has proximal concentric 50% stenoses with mid vessel 50% stenosis both representing in-stent restenosis followed by distal stents which have eccentric 30 to 40% stenoses. The entire caliber of the right coronary artery is approximately 2 to 2.5 mm in diameter throughout The GHOSH ventriculogram reveals Normal 60% The left ventricular end-diastolic pressure 10 mmHg IMPRESSION Coronary artery disease as described above Theoretically the second obtuse marginal could be stented however I would recommend medical management unless symptoms become recalcitrant. A 2 mm stent would stretch the artery significantly and given the mild to moderate concentric in-stent restenosis he is experienced another stents it is likely this obtuse marginal artery would occlude fairly quickly Normal ejection fraction Normal left ventricular end-diastolic pressure PLAN 1. Aggressive risk factor modification 2. Medical management 3. Maximize antianginal medications Electronically signed by : Deonte Brown MD 11/13/2023 11:13:48
[2023-11-13 09:57] LABS: Basophils # 0.2 K/mm3 (0-0.2); Basophils % 1.4 % (0.1-2.0); Eosinophils # 0.2 K/mm3 (0.0-0.4); Eosinophils % 1.6 % (0.1-12.0); Hematocrit 44.3 % (42.0-52.0); Hemoglobin 15.1 g/dL (14.1-18.0); Lymphocytes # 1.9 K/mm3 (0.7-4.5); Lymphocytes % 15.4 % (10-50); Mean Corpuscular HGB Conc 34.2 g/dL (31.8-35.4); Mean Corpuscular Volume 93.4 fl (80-94); Mean Platelet Volume 8.7 fl (7.4-10.4); Monocytes # 0.6 K/mm3 (0.1-1.0); Monocytes % 5.3 % (1.7-9.3); Neutrophils # 9.3 K/mm3 (1.8-7.8); Neutrophils % 76.3 % (37.0-80.0); Platelet Count 282 K/mm3 (142-424); Red Blood Count 4.74 M/mm3 (4.60-6.20); Red Cell Distribution Width 14.6 % (11.5-17.5); White Blood Count 12.2 K/mm3 (4.8-10.8)
[2023-11-13 10:04] LABS: Anion Gap 17.7 mEq/L (5-15); Blood Urea Nitrogen 17 mg/dl (9-20); Calcium 9.8 mg/dl (8.4-10.2); Carbon Dioxide 25 mmol/L (22.0-30.0); Chloride 97 mmol/L (98-107); Creatinine Clearance Estimated 79 mL/min (50-200); Estimated Glomerular Filt Rate 68 ml/min (>60); GFR (African American) 83 ML/MIN (>60); Glucose 289 mg/dl (74-100); Potassium 3.7 mmoL/L (3.5-5.1); Sodium 136 mmol/L (136-145)
[2023-11-13] MEDS: HEPARIN 1,000 UNITS/500ML NS (CATH LAB) 3000 UNIT IV (10:51)
[2023-11-13] MEDS: NITROGLYCERIN 800MCG/8ML SYR (CATH LAB) 800 MCG IA (10:51)
[2023-11-13] MEDS: LIDOCAINE 1% 10ML MDV 20 ML IJ (10:51)
[2023-11-13] MEDS: diphenhydrAMINE 50MG/ML VIAL 50 MG IV (10:51)
[2023-11-13] MEDS: VERAPAMIL 2.5MG/ML 2ML VIAL 2.5 MG IV (10:51)
[2023-11-13] MEDS: 0.9 % SODIUM CHLORIDE 500 ML 25 ML IV (10:52)
[2023-11-13] MEDS: FENTANYL 100MCG/2ML VIAL 25 MCG IV (11:11)
[2023-11-13] MEDS: MIDAZOLAM HCL 1MG/1ML 5ML VIAL 1 MG IV (11:11)
[2023-11-13] MEDS: HEPARIN 1,000 UNITS/ML 10ML VIAL (CATH LAB) 10000 UNIT IV (11:12)
[2023-11-13] MEDS: IOPAMIDOL-370 (76%);100ML BOTTLE 60 ML IV (12:20)
[2023-11-13 13:38] LABS: POC Glucose,Bedside 332 (70-110)
== END 2023-11-13 14:29 | disposition home or self-care (01) ==
LOC: CATHLAB 09:31
PROVIDERS: PCP Physician Assistant Medical; Visit Provider Internal Medicine
DX: I25.118 Atherosclerotic heart disease of native coronary artery with other forms of angina pectoris (principal); I11.9 Hypertensive heart disease without heart failure; E11.9 Type 2 diabetes mellitus without complications; E78.2 Mixed hyperlipidemia; G47.33 Obstructive sleep apnea (adult) (pediatric); R94.31 Abnormal electrocardiogram [ECG] [EKG]; Z87.891 Personal history of nicotine dependence; Z79.899 Other long term (current) drug therapy; Z79.84 Long term (current) use of oral hypoglycemic drugs; E83.42 Hypomagnesemia
CPT/HCPCS: 80048; 82962; 85025; 93458; 99152; C1725; C1769; J1644; Q9967

== ENCOUNTER 2023-12-05 09:28 | Outpatient (CLI) | payer MEDICAID, SELFPAY ==
--- NOTE | 2023-12-05 09:29 | CT_ITS ---
FINAL REPORT TECHNIQUE: Axial CT images of the abdomen were obtained with IV contrast only. Coronal and sagittal reformatted images were also obtained. This study was performed with techniques to keep radiation doses as low as reasonably achievable (ALARA). Individualized dose reduction techniques using automated exposure control or adjustment of mA and/or kV according to the patient's size were employed. CLINICAL HISTORY: renal mass protocol COMPARISON: 05/09/2023 FINDINGS: There are widespread micro nodular opacities in the lung gallardo bilaterally, also seen on the prior CT of April 2023. The liver has an unremarkable appearance, without evidence of mass. There is mild nonspecific gallbladder wall thickening. There is no evidence of biliary ductal dilatation. The pancreas appears normal. The spleen size is within normal limits. There is a 4.7 cm mass in the upper pole of the right kidney, which is consistent with a cyst. There is another 1.1 cm right renal cyst present, and a 0.9 cm cyst in the upper pole of the left kidney. No other focal renal masses are identified. There is no evidence of adenopathy. No abnormal fluid collection is seen. No localized inflammatory processes identified. Note is made of L5 pars defects. IMPRESSION: Mild nonspecific gallbladder wall thickening. Widespread micronodular opacities in the lung gallardo bilaterally, also seen on the prior CT of April 2023 and not significantly changed. 4.7 cm mass upper pole of the right kidney, consistent in appearance with a cyst. There is a 1.1 cm right renal cyst as well and is 0.9 cm cyst in the upper pole of the left kidney. Reviewed, Interpreted and Dictated by Jose Flores III, MD Transcribed by Roxie Downs Authenticated and [facility]
[2023-12-05] MEDS: IOPAMIDOL-370 (76%);100ML BOTTLE 75 ML IV (11:14)
[2023-12-05] MEDS: SODIUM CHLORIDE 0.9% 10ML SYR (RAD ONLY) 10 ML IV (11:14)
== END 2023-12-05 23:59 ==
LOC: RAD 09:29
PROVIDERS: PCP Physician Assistant Medical; Visit Provider Physician Assistant
DX: N28.89 Other specified disorders of kidney and ureter (principal); R94.31 Abnormal electrocardiogram [ECG] [EKG]; R94.39 Abnormal result of other cardiovascular function study; I11.9 Hypertensive heart disease without heart failure
CPT/HCPCS: 74170; Q9967

== ENCOUNTER 2024-05-13 11:45 | Outpatient (CLI) | payer MEDICAID, SELFPAY ==
[2024-05-13 12:40] LABS: Blood Urea Nitrogen 18 mg/dl (9-20); Estimated Glomerular Filt Rate 68 ml/min (>60); GFR (African American) 82 ML/MIN (>60)
[2024-05-14 08:35] LABS: PSA, Free 0.32 ng/mL; Prostate Specific Ag 0.8 ng/mL (0.0-4.0)
== END 2024-05-13 23:59 | disposition home or self-care (01) ==
LOC: LAB 11:46
PROVIDERS: PCP Physician Assistant Medical; Visit Provider Urology
DX: N40.0 Benign prostatic hyperplasia without lower urinary tract symptoms (principal); N28.1 Cyst of kidney, acquired
CPT/HCPCS: 36415; 82565; 84153; 84154; 84520

== ENCOUNTER 2024-08-14 14:06 | Outpatient (CLI) | payer MEDICAID, SELFPAY ==
--- NOTE | 2024-08-14 14:07 | CT_ITS ---
FINAL REPORT CLINICAL HISTORY: lung cancer screening former smoker quit 1.5 years ago, 1.5 ppd for 20 years copd COMPARISON: 05/09/2023 FINDINGS: CT CHEST LOW DOSE SCREENING HISTORY: Screening exam for lung cancer. 63-year-old male, former smoker who quit 1.5 years ago, 30 pack year smoking history DOSE: CTDIvol: 2.9 mGy, DLP: 96.38 mGy*cm COMPARISON: 05/09/2023. TECHNIQUE: Axial CT without IV contrast administration using low dose protocol. This study was performed with techniques to keep radiation doses as low as reasonably achievable, (ALARA). Individualized dose reduction techniques using automated exposure control or adjustment of mA and/or kV according to the patient's size were employed. FINDINGS: The diffuse fine nodular pattern of opacities is again noted, greatest in the upper lobes. This may be secondary to chronic infection, sarcoidosis, lung or Langerhans cell histiocytosis, or pneumoconiosis. No new dominant nodule is seen. No pulmonary lesions are seen suspicious for neoplasm. No pleural or pericardial effusion is seen . Mild right paratracheal adenopathy is noted, stable when compared to the prior exam, likely benign or reactive. There is incomplete visualization of the right renal mass seen on the prior exam. IMPRESSION: No dominant renal mass to suggest malignancy is seen. Stable extensive changes of fine nodular opacities, greatest in the upper lobes. The different diagnosis is described above. LUNG RADS CATEGORY 2S RECOMMENDATION: 12 month LDCT follow up Reviewed, Interpreted and Dictated by Jackelyn Hdez MD Transcribed by Roxie Downs Authenticated and . [facility]
[2024-08-14 15:10] VITALS: PULSE 66
[2024-08-14] MEDS: ALBUTEROL 0.083% 2.5 MG/3 ML NEB IH (15:10)
== END 2024-08-14 23:59 | disposition home or self-care (01) ==
LOC: RAD 14:07
PROVIDERS: PCP Internal Medicine Pulmonary Disease; Visit Provider Internal Medicine Pulmonary Disease
DX: R06.09 Other forms of dyspnea (principal); F17.210 Nicotine dependence, cigarettes, uncomplicated
CPT/HCPCS: 71271; 94060; 94618; 94640; 94726; 94729; J7613

== ENCOUNTER 2025-08-15 12:59 | Outpatient (CLI) | payer MEDICAID, SELFPAY ==
--- OUTSIDE RECORDS SUMMARY | 2025-08-15 13:02 | XMS_ITS | Clinical Summary ---
Author Organization [facility] Address 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 Role Phone Unavailable Primary Care Provider Unavailabl e Allergies Active Allergy Reactions Criticality Noted Date Comments Lisinopril Cough High 12/31/2021 Medications aspirin 81 mg Oral Tablet, Delayed Release (E.C.) TAKE ONE (1) TABLET BY MOUTH EVERY DAY 2 Active atorvastatin (LIPITOR) 20 mg Oral Tablet TAKE ONE (1) TABLET BY MOUTH EVERY DAY 2 Active benzonatate (TESSALON) 200 mg Oral Capsule TAKE 1 CAPSULE THREE (3) TIMES DAILY 2 Active Cholecalcifero l, Vitamin D3, 1,250 mcg (50,000 unit) Oral Capsule TAKE ONE (1) CAPSULE BY MOUTH EVERY WEEK 2 Active clopidogreL (PLAVIX) 75 mg Oral Tablet Take 75 mg by mouth daily. 2 Active cyanocobalamin 1,000 mcg Oral Tablet TAKE ONE (1) TABLET BY MOUTH EVERY DAY 2 Active hydroCHLOROthi azide (MICROZIDE) 12.5 mg Oral Capsule TAKE ONE (1) CAPSULE BY MOUTH EVERY DAY 2 Active losartan (COZAAR) 50 mg Oral Tablet TAKE ONE (1) TABLET BY MOUTH EVERY DAY 2 Active metFORMIN (GLUCOPHAGE) 1,000 mg Oral Tablet TAKE ONE TABLET BY MOUTH TWICE A DAY WITH MORNING AND EVENING MEALS. 2 Active pantoprazole (PROTONIX) 40 mg Oral Tablet, Delayed Release (E.C.) TAKE ONE (1) TABLET BY MOUTH EVERY DAY 2 Active fluticasone propionate (FLONASE) 50 mcg/actuation Nasl Juliette, Suspension 2 Sprays by Nasal route daily. Active ibuprofen (ADVIL;MOTRIN) 600 mg Oral Tablet Take 600 mg by mouth every 8 hours as needed for Pain. Active nitroGLYCERIN (NITROSTAT) 0.4 mg SL Tablet, Sublingual Place 0.4 mg under the tongue every 5 minutes as needed for Chest pain. Active albuterol (PROVENTIL HFA;VENTOLIN HFA) 90 mcg/actuation Inhl HFA Aerosol Inhaler INHALE TWO (2) PUFFS FOUR (4) TIMES A DAY NEEDED FOR SHORTNESS OF BREATH OR WHEEZING 3 Active ONETOUCH VERIO TEST STRIPS Mis Strip USE DIRECTED TEST THREE (3) TIMES DAILY 3 Active dextromethorph an (DELSYM) 30 mg/5 mL Oral Suspension, Sust.Release 12 hr Take 60 mg by mouth 2 times daily. 2 Active ADVAIR DISKUS 250-50 mcg/dose Inhl Disk with Device INHALE ONE (1) PUFF BY MOUTH TWICE DAILY 2 Active NOVOLOG FLEXPEN U-100 INSULIN 100 unit/mL (3 mL) SubQ Insulin Pen INJECT SUBCUTANEOUSLY THREE (3) TIMES DAILY PER SLIDING SCALE 150-200 TWO (2) UNITS, 201-250 FOUR (4) UNITS, 251-300 SIX (6) UNITS 3 Active LANTUS SOLOSTAR U-100 INSULIN 100 unit/mL (3 mL) SubQ Insulin Pen INJECT 20 UNITS EVERY DAY BY SUBCUTANEOUS ROUTE IN THE EVENING FOR 30 DAYS. 2 Active BD ULTRA-FINE MINI PEN NEEDLE 31 gauge x 11/10 Misc Needle USE DIRECTED THREE (3) TIMES DAILY 3 Active Social History Tobacco Use Types Packs/Day Years Used Date Smoking Tobacco: Former Cigarettes Q uit: 2021 Smokeless Tobacco: Never Tobacco Cessation:Counseling Given: Not Answered Sex and Gender Information Value Date Recorded Sex Assigned at Not on file Legal Sex Male 9:17 AM EDT Gender Identity Not on file Sexual Orientation Not on file Last Filed Vital Signs Vital Sign Reading Time Taken Comments Blood Pressure 130/70 10/21/2022 3:16 PM EST Pulse 75 10/21/2022 3:16 PM EST Temperature - - Respiratory Rate 14 10/21/2022 3:16 PM EST Oxygen Saturation 97% 10/21/2022 3:16 PM EST rar Inhaled Oxygen Concentration - - Weight 78.5 kg (173 lb) 10/21/2022 3:16 PM EST Height 175.3 cm (5' 9 ) 10/21/2022 3:16 PM EST Body Mass Index 25.55 10/21/2022 3:16 PM EST Plan of Treatment Health Maintenance Due Date Last Done Comments Annual Wellness Exam 1965 Hepatitis C Screening 1980 Cologuard 12/06/2007 Colon Cancer Screening 12/06/2007 Colonoscopy 12/06/2007 FIT 12/06/2007 Sigmoidoscopy 12/06/2007 Virtual Colonography 12/06/2007 Zoster (1 of 2) 2012 COVID-19 Vaccine (2024-09 6 season) 2025 01/06/2021, 12/07/2020 Influenza Vaccine (#1) 2025 9, 05/30/2016 DTaP/TDaP/Td (3 - Td or Tdap) 03/09/2027, 06/19/2016 Pneumococcal Vaccine 50+ Completed 023, 05/30/2016 Hepatitis B Vaccine Aged Out No longe r eligible based on patient's age to complete this topic Meningococcal B Vaccine Aged Out No l onger eligible based on patient's age to complete this topic Insurance [facility] [id number] [facility] [place] [id number] [facility]
[2025-08-15 14:00] VITALS: PULSE 65; PULSE 67
[2025-08-15] MEDS: ALBUTEROL 0.083% 2.5 MG/3 ML NEB IH (14:00)
--- NOTE | 2025-08-15 14:24 | CT_ITS ---
FINAL REPORT CLINICAL HISTORY: lung cancer screening former smoker, quit 4 years ago. smoked 1/2 ppd x 20 years COMPARISON: 08/14/2024 FINDINGS: CT CHEST LOW DOSE SCREENING 64-year-old male, former smoker quit 4 years ago, [id number] history HISTORY: Screening exam for lung cancer. DOSE: CTDI vol: 2.90 mGy, DLP: 101.60 mGy*cm TECHNIQUE: Axial CT without IV contrast administration using low dose protocol. This study was performed with techniques to keep radiation doses as low as reasonably achievable, (ALARA). Individualized dose reduction techniques using automated exposure control or adjustment of mA and/or kV according to the patient's size were employed. There are fine nodular opacities, 5 mm or less in size, present in the lung gallardo bilaterally. These were noted primarily in the upper lobes on the prior exam of 08/14/2024. On the current exam, these opacities are improved in the upper lobes, however, are greater in number in the lower lobes. Underlying emphysema is present, along with chronic interstitial changes. No dominant pulmonary nodule is identified. No pleural or pericardial effusion is seen. No adenopathy or mass lesion is present. IMPRESSION: Fine nodular opacities are once again identified, improved in the upper lobes and greater in number in the lower lobes when compared to the prior exam. These are most likely secondary to infectious/inflammatory etiology. No dominant pulmonary nodule is identified. LUNG RADS CATEGORY 2S, the S designation for the fine nodular opacities in the lung gallardo bilaterally. RECOMMENDATION: 12 month LDCT follow up Reviewed, Interpreted and Dictated by Jackelyn Hdez MD Transcribed by Roxie Downs Authenticated and [facility]
== END 2025-08-15 23:59 | disposition home or self-care (01) ==
LOC: RAD 12:59
PROVIDERS: Visit Provider Internal Medicine Pulmonary Disease
DX: J44.9 Chronic obstructive pulmonary disease, unspecified (principal); R91.8 Other nonspecific abnormal finding of lung field; R94.2 Abnormal results of pulmonary function studies; Z12.2 Encounter for screening for malignant neoplasm of respiratory organs; F17.210 Nicotine dependence, cigarettes, uncomplicated
CPT/HCPCS: 71271; 94060; 94618; 94640; 94726; 94729